=== PATIENT | female | born 1950 | race Caucasian/White ===

== ENCOUNTER 2023-04-21 08:46 | Emergency (ER) | payer MEDICARE, BC ==
[~2023-04-21] VITALS: Ht 167.6 cm; Wt 101.4 kg
[2023-04-21 08:51] VITALS: TEMP 98.8
[2023-04-21] MEDS ORDERED: dexamethasone sod phosphate 10mg/ml inj IV STA (09:34)
[2023-04-21] MEDS ORDERED: ketorolac trometh. 30mg/ml inj. IV ONE (09:35)
[2023-04-21] MEDS ORDERED: normal saline 1000ML IV soln IVB ONE (09:35)
[2023-04-21] MEDS ORDERED: acetaminophen 1,000mg/100ml IV 100 ML IV ONE (09:35)
[2023-04-21 09:41] LABS: BASOPHILS % (AUTO) 0.8 % (0-1); EOSINOPHILS % (AUTO) 0.4 % (0-6); HEMATOCRIT 39.9 % (35.0-45.0); HEMOGLOBIN 13.6 g/dl (12.0-16.0); LYMPHOCYTES # (AUTO) 0.7 X10'3 (1.1-4.8); LYMPHOCYTES % (AUTO) 14.5 % (21-51); MEAN PLATELET VOLUME 6.7 FL (7.4-10.4); MONOCYTES # (AUTO) 0.5 X10'3 (0-0.9); NEUTROPHILS # (AUTO) 3.6 X10'3 (1.8-7.7); NEUTROPHILS % (AUTO) 74.3 % (42-75); PLATELET COUNT 241 X10'3 (140-440); RED BLOOD COUNT 3.99 X10'6 (4.20-5.60); RED CELL DISTRIBUTION WIDTH 12.6 % (11.5-14.5); WHITE BLOOD COUNT 4.9 X10'3 (4.5-11.0)
[2023-04-21 09:53] LABS: ALANINE AMINOTRANSFERASE 20 U/L (12-78); ALBUMIN 3.2 G/DL (3.4-5.0); ALBUMIN/GLOBULIN RATIO 0.7 (1.1-1.5); ALKALINE PHOSPHATASE 101 IU/L (46-116); ANION GAP 5 (8-16); ASPARTATE AMINO TRANSFERASE 17 U/L (10-37); BILIRUBIN,TOTAL 0.7 MG/DL (0.1-1.0); BLOOD UREA NITROGEN 17 MG/DL (7-18); CALCIUM 9.5 MG/DL (8.5-10.1); CHLORIDE 103 MMOL/L (99-107); CREATININE 0.74 MG/DL (0.40-0.90); GLUCOSE 142 MG/DL (70-104); POTASSIUM 3.8 MMOL/L (3.5-5.1); SODIUM 136 MMOL/L (135-145); TOTAL CARBON DIOXIDE 27.8 MMOL/L (24-32); TOTAL PROTEIN 7.6 G/DL (6.4-8.2); eCRCL 66 ML/MIN; eGFR 78 ML/MIN
[2023-04-21 10:25] VITALS: BP 134/80; PULSE 86; RESP 18; O2SAT 96
[2023-04-21 10:49] LABS: BILIRUBIN,URINE NEGATIVE (Neg); CLARITY,URINE CLEAR (Clear); COLOR,URINE YELLOW (Yellow); GLUCOSE, URINE NEGATIVE (Neg); KETONES,URINE NEGATIVE (Neg); LEUKOCYTE ESTERASE ,URINE NEGATIVE (Neg); NITRITES, URINE NEGATIVE (Neg); OCCULT BLOOD,URINE TRACE-INTACT (Neg); PROTEIN,URINE NEGATIVE (Neg); UROBILINOGEN,URINE 0.2 E.U/dL (0.2-1.0)
[2023-04-21 10:54] LABS: UA COLLECTION TYPE CLN CATCH MIDSTREAM
[2023-04-21 10:58] LABS: BACTERIA,URINE FEW /HPF (Neg); MUCUS STRANDS NONE SEEN /LPF (Neg); RBC,URINE NONE SEEN /HPF (0-2); SQUAMOUS EPITHELIAL CELL,UR FEW /LPF (FEW); WBC CLUMPS,URINE FEW /HPF (NEGATIVE)
[2023-04-21] MEDS ORDERED: CefTRIAXone 2gm/D5W 50ml BAG 50 ML IV ONE (11:40)
[2023-04-21] MEDS ORDERED: CEPH-585 PO (11:50)
== END 2023-04-21 12:45 | disposition home or self-care (01) ==
LOC: ER 08:48
DX: N39.0 Urinary tract infection, site not specified (principal); M25.511 Pain in right shoulder; M25.561 Pain in right knee
CPT/HCPCS: 36415; 80053; 81001; 84145; 85025; 87088; 96361; 96365; 96375; 99284; J0131; J0696; J1100; J1885; J7030

== ENCOUNTER 2025-06-18 09:34 | Emergency (ER) | payer MEDICARE, OTHER ==
[~2025-06-18] VITALS: Ht 167.6 cm; Wt 104.7 kg
[2025-06-18 10:22] LABS: MEAN PLATELET VOLUME 7.0 FL (7.4-10.4); RED CELL DISTRIBUTION WIDTH 12.6 % (11.5-14.5)
--- NOTE | 2025-06-18 10:25 | Physician Documentation ---
History of Present Illness Chief Complaint: Abdominal Pain Stated Complaint: ABDOMINAL/GROIN PAIN Time Seen by MD: 10:15 [facility] 74-year-old female presents to the ED after recently being treated for a UTI via Rocephin with increased left pelvic pain and left back pain. Denies any fevers but reports incontinence and frequency denies any burning urination. Denies any history of kidney stones.. She states that after she finished her antibiotics round on Tuesday she had completely resolved if symptoms however two days ago she began having symptoms again. Reports having chronic UTIs .denies any diarrhea Medication Reconciliation Allergies: Coded Allergies: latex (Verified Allergy, Unknown, 04/21/23) Past Medical History Past Medical History: *MUSCULOSKELETAL*, Chronic Pain Review of Systems All Other Systems at this time: Reviewed and Negative ROS As stated above in the HPI, otherwise all systems are reviewed and negative. Physical Exam Vital Signs: Temperature: 98.4, Source: Oral, Heart Rate: 81, Respiratory Rate: 16, BP: 135/83, Pulse Oximetry: 96, Weight: 104.700 Oxygen Flow Rate: 0 Physical Exam General: Alert, no apparent distress. . Gastrointestinal: Soft, nontender, nondistended. Bowels sounds present. Positive left-sided CVA tenderness Extremities: Normal range of motion, no deformity. Neurologic: Oriented x4. Psychiatric: Normal mood and affect. Skin: Normal color, warm and dry. No edema, no ecchymosis. Progress Results/Orders Results/Orders Vital Signs 06/18/25 09:36 Temp 98.4 Pulse 81 Resp 16 B/P (MAP) 135/83 Pulse Ox 96 O2 Flow Rate 0 Laboratory Tests Test 06/18/25 09:43 06/18/25 10:06 Urine Comment CBC Comment Chemistry Comments Medical Decision Making Additional information obtaine: old records Findings This patient's labs are mostly reassuring other than moderate decreased kidney function which appears to be attributable to dehydration urinalysis shows no signs of infection. This is a suspect some of her symptoms may be attributed to decreased fluid intake. As these findings with the patient in she agrees she will follow up in the outpatient setting and increase her oral intake.. She was also advised of close return precautions including fevers burning urination or any increased symptoms for further evaluation Differential Dx:Considerations: Ovarian cyst/torsion, Urinary tract infection, Urolithiasis Departure Disposition: 01 HOME / SELF CARE / HOMELESS Impression: Primary Impression: Abdominal pain Condition: Stable Discharge Instructions: Abdominal Pain (Nonspecific) Referrals: NO PRIMARY CARE PROVIDER (PCP) Signature Scribe Signature: g Attestation: Scribed for Bernard Jimenez Churn Driller by Bernard Jovel NP . 06/18/25 10:25 BERNARD JIMENEZ NP Jun 18, 2025 10:25
[2025-06-18 10:41] LABS: CREATININE 0.93 MG/DL (0.40-0.90); TOTAL CARBON DIOXIDE 23.7 MMOL/L (24-32); eCRCL 51 ML/MIN; eGFR 59 ML/MIN
[2025-06-18 11:09] LABS: LEUKOCYTE ESTERASE ,URINE NEGATIVE (Neg); NITRITES, URINE NEGATIVE (Neg); OCCULT BLOOD,URINE NEGATIVE (Neg)
[2025-06-18 11:11] LABS: UA COLLECTION TYPE CLN CATCH MIDSTREAM
[2025-06-18 11:18] LABS: HYALINE CASTS 0-3 /LPF (NEGATIVE); SQUAMOUS EPITHELIAL CELL,UR FEW /LPF (FEW)
[2025-06-18 11:47] VITALS: BP 144/83; PULSE 68; RESP 16; TEMP 98.4; O2SAT 98
== END 2025-06-18 11:50 | disposition home or self-care (01) ==
LOC: ER 09:35
DX: R10.9 Unspecified abdominal pain (principal); G89.29 Other chronic pain; Z91.040 Latex allergy status
CPT/HCPCS: 36415; 80053; 81001; 83690; 85025; 99283